=== PATIENT | male | born 1955 | race Caucasian/White ===

== ENCOUNTER 2021-07-16 19:18 | Emergency (ER) | payer OTHER ==
[~2021-07-16] VITALS: Ht 182.9 cm; Wt 93.0 kg
[2021-07-16] MEDS ORDERED: LEVO-T100 MCG PO (19:26)
[2021-07-16] MEDS ORDERED: LISINOPRIL20 MG PO (19:26)
[2021-07-16] MEDS ORDERED: ALLOPURINOL 10100 M3 PO (19:26)
[2021-07-16] MEDS ORDERED: MIGRANE MED (19:27)
[2021-07-16] MEDS ORDERED: ALLERGY MED (19:27)
[2021-07-16] MEDS ORDERED: BUTALBITAL-ACE1 EAC1 PO (19:37)
[2021-07-16 19:55] LABS: ABSOLUTE BASOPHILS 0.1 thou/uL (0.0-0.2); ABSOLUTE EOSINOPHILS 0.3 thou/uL (0.0-0.7); ABSOLUTE LYMPHOCYTES 3.2 thou/uL (0.8-5.3); ABSOLUTE MONOCYTES 0.7 thou/uL (0.0-1.2); ABSOLUTE NEUTROPHILS 6.2 thou/uL (1.6-8.1); BASOPHILS 0.7 %; EOSINOPHILS 3.2 %; HEMATOCRIT 35.2 % (42.0-52.0); HEMOGLOBIN 11.9 gm/dL (14.0-18.0); LYMPHOCYTES 30.2 %; MCH 32.1 pg (26.0-34.0); MCHC 33.8 g/dL (28.0-37.0); MCV 94.8 fL (80.0-100.0); MONOCYTES 6.6 %; NUCLEATED RBCS 0 /100WBC; PLATELET COUNT* 274 thou/uL (150-400); POLYS 59.3 %; RBC 3.71 mil/uL (4.50-6.00); RDW-CV 14.9 % (10.5-14.5); WBC 10.5 thou/uL (4.0-11.0)
[2021-07-16 19:57] LABS: CALCIUM 8.7 mg/dL (8.5-10.1); CREATININE 2.1 mg/dL (0.6-1.3); POTASSIUM 4.1 mmol/L (3.5-5.1)
[2021-07-16 20:01] LABS: ALBUMIN 4.1 g/dL (3.4-5.0); TOTAL BILIRUBIN 0.3 mg/dL (<0.1-1.0); TOTAL PROTEIN 7.2 g/dL (6.4-8.2)
[2021-07-16 21:43] LABS: URINE BILIRUBIN NEGATIVE (Negative); URINE BLOOD NEGATIVE (Negative); URINE CLARITY CLEAR; URINE COLOR YELLOW; URINE GLUCOSE-RANDOM NEGATIVE (Negative); URINE KETONES TRACE (Negative); URINE LEUKOCYTES-REFLEX NEGATIVE (Negative); URINE NITRITE-REFLEX NEGATIVE (Negative); URINE PROTEIN NEGATIVE (Negative); URINE UROBILINOGEN 0.2 E.U./dl (0.2-1.0)
[2021-07-16 22:34] VITALS: BP 118/74
--- NOTE | 2021-07-17 11:48 | EKG ---
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[place] : 1955 Requested By: Billie Gonzalez Order Number: [id number] MD: Sorin Carranza Measurements Intervals [place]ron Rate: 71 P: IA: QRS: 54 QRSD: 227 T: -13 QT: 463 QTc: 504 Interpretive Statements Atrial flutter with predominantly 4-1 AV block Nonspecific intraventricular conduction delay Possible inferior infarct, age indeterminate Anterior infarct, 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
== END 2021-07-16 22:34 | disposition home or self-care (01) ==
LOC: M.ERS 19:18
PROVIDERS: Personal Emergency Response Attendant
DX: E86.0 Dehydration (principal); N17.9 Acute kidney failure, unspecified; Z95.1 Presence of aortocoronary bypass graft; Z88.1 Allergy status to other antibiotic agents; Z91.048 Other nonmedicinal substance allergy status